=== PATIENT | male | born 1955 | race Caucasian/White ===

== ENCOUNTER 2020-07-22 08:46 | Day surgery (SDC) | payer MEDICARE, MEDICAID ==
[~2020-07-22] VITALS: Ht 180.3 cm; Wt 65.0 kg
[2020-07-22] MEDS ORDERED: XANAX0.5 MG PO (09:32)
[2020-07-22] MEDS ORDERED: ALBUTEROL SULF8.5 GM INH (09:32)
[2020-07-22] MEDS ORDERED: FLOMAX0.4 MG PO (09:32)
[2020-07-22] MEDS ORDERED: LYRICA75 MG PO (09:33)
[2020-07-22] MEDS ORDERED: TRAZODONE HCL150 MG PO (09:33)
[2020-07-22] MEDS ORDERED: SEROQUEL100 MG PO (09:33)
[2020-07-22] MEDS ORDERED: TOPROL XL50 MG PO (09:34)
[2020-07-22] MEDS ORDERED: ABILIFY10 MG PO (09:34)
[2020-07-22] MEDS ORDERED: CYMBALTA60 MG PO (09:34)
[2020-07-22] MEDS ORDERED: LIPITOR80 MG PO (09:34)
[2020-07-22 09:35] LABS: ANION GAP 9.5 mmol/L (8-16); CALCIUM 8.5 mg/dL (8.5-10.1); CARBON DIOXIDE 29.6 mmol/L (21.0-32.0); CREATININE - SERUM 1.3 mg/dL (0.6-1.3); POTASSIUM - SERUM 4.1 mmol/L (3.5-5.1)
[2020-07-22] MEDS ORDERED: TRELEGY ELLIPT1 EACH INH (09:35)
[2020-07-22] MEDS ORDERED: HYDROCODON-ACE1 EA10 PO (09:35)
[2020-07-22] MEDS ORDERED: FLUTICASONE PRO16 GM NASAL (09:35)
[2020-07-22 09:39] VITALS: BP 162/76; Ht 180.3 cm; Wt 65.0 kg
[2020-07-22 09:42] LABS: BASOPHILS 0.1 % (0-2); EOSINOPHILS 0.2 % (0-7); IMMATURE GRANULOCYTES 0.3 % (0-5); LYMPHOCYTES 6.5 % (15-50); MCH 34.3 pg (26.0-34.0); MCHC 34.2 g/dL (31.0-37.0); MCV 100.3 fL (80.0-100.0); MEAN PLATELET VOLUME 9.3 fL (7.4-10.4); MONOCYTES 7.1 % (2-11); NEUTROPHIL ABS# 9.31 10x3/uL (1.78-5.38); NEUTROPHILS 85.8 % (40-80); PLATELET COUNT 251 10x3/uL (130-400); RBC 3.79 10x6/uL (4.20-6.10); RDW 15.8 % (11.5-14.5); WBC 10.8 10x3/uL (4.8-10.8)
--- NOTE | 2020-07-22 11:25 | NUR ---
PATIENT AMBULATES TO BATHROOM AND VOIDS IN TOILET WITHOUT DIFFICULTY. RIGHT FOREARM PIV DC'D WITH TIP INTACT. DISCHARGE INSTRUCTIONS REVIEWED WITH PATIENT 1135 DISCHARGED HOME VIA WHEELCHAIR TO PRIVATE VEHICLE WITH DAUGHTER
--- NOTE | 2020-07-22 19:42 | OP ---
PATIENT NAME: CHRISTIANO LINTON MEDICAL RECORD: [id number] :57 LOCATION:[facility] ADMISSION DATE: SURGEON: RICHARDSON TAYLOR DO DATE OF OPERATION: 07/22/2020 PROCEDURE: EGD with biopsies. 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 SCOPE: Olympus video gastroscope. MEDICATIONS: Propofol 250 mg IV per anesthesia. ESTIMATED BLOOD LOSS: Minimal. COMPLICATIONS: None. FINDINGS: Informed consent was given. The patient was made comfortable with the above medication. After reaching an adequate level of sedation by slow IV push, the patient was placed on his left side. The endoscope was advanced under direct visualization through the mouth to the second portion of the duodenum with ease. The upper and middle esophagus appeared normal. In the distal esophagus and down to the GE junction, there was evidence of erosive reflux-induced esophagitis. The patient does have a history of Barber's esophagus without dysplasia and there were no obvious abnormalities outside of the inflammation visualized from the reflux itself. Multiple cold forceps biopsies were taken from the squamocolumnar junction to submit for histopathology regarding the history of Barber's. The endoscope was advanced beyond the GE junction into the stomach and retroflexed to view the cardia and fundus. There was a moderate sliding hiatal hernia. There were no associated ulcerations or other abnormalities. The stomach revealed diffuse, but patchy gastritis consisting of congestion, erythema, and friability. Cold forceps biopsies were taken from the antrum and incisura to submit for histopathology and to rule out the presence of H. pylori. The endoscope was advanced beyond the pylorus into the duodenum. In the bulb, there were changes of duodenitis consisting of erythema and granularity and friability. This normalized into the second portion of the duodenum. Cold forceps biopsies were taken to submit for histopathology. The endoscope was then withdrawn from the patient. The patient tolerated the procedure well and there were no complications. IMPRESSIONS: 1. Erosive reflux-induced esophagitis in the setting of history of Barber's esophagus without dysplasia. Multiple biopsies were taken from the squamocolumnar junction. If this is Barber's mucosa it is short segment. 2. Moderate size sliding hiatal hernia without associated abnormalities. 3. Gastritis. 4. Duodenitis. PLAN AND RECOMMENDATIONS: 1. Discharge home when recovery parameters are met. 2. Follow up biopsy specimen results. 3. GERD diet and reflux precautions. 4. Continue current medications. 5. Nexium 40 mg daily indefinitely. 6. Follow up in GI clinic in 3 months. OPERATIVE REPORT [id number] CHRISTIANO LINTON 7. Repeat EGD every 1 to 2 years for surveillance of Barber's esophagus. TRANSINT:[id number] Voice Confirmation ID: [id number] DOCUMENT ID: [id number] RICHARDSON TAYLOR DO at 1942 CC: [id number] DICTATION DATE: 07/22/20 1051 [employer] ATT[employer]ER: 07/22/20 1247 [facility] 07/22/20 [facility] [address] [place] [address]
== END 2020-07-22 11:35 | disposition home or self-care (01) ==
LOC: D.OPS 08:46
PROVIDERS: Anesthesiology; ATTEND Internal Medicine Gastroenterology
DX: K22.70 Barrett's esophagus without dysplasia (principal); K21.00 Gastro-esophageal reflux disease with esophagitis, without bleeding; K44.9 Diaphragmatic hernia without obstruction or gangrene; K29.70 Gastritis, unspecified, without bleeding; K29.80 Duodenitis without bleeding; J44.9 Chronic obstructive pulmonary disease, unspecified; F17.210 Nicotine dependence, cigarettes, uncomplicated; Z80.0 Family history of malignant neoplasm of digestive organs; Z86.010 Personal history of colon polyps

== ENCOUNTER 2020-08-05 08:53 | Day surgery (SDC) | payer MEDICARE, MEDICAID ==
[~2020-08-05] VITALS: Ht 180.3 cm; Wt 65.0 kg
[~2020-08-05 08:53] MED LIST: ABILIFY10 MG PO; ALBUTEROL SULF8.5 GM INH; CYMBALTA60 MG PO; FLOMAX0.4 MG PO; FLUTICASONE PRO16 GM NASAL; HYDROCODON-ACE1 EA10 PO; LIPITOR80 MG PO; LYRICA75 MG PO; SEROQUEL100 MG PO; TOPROL XL50 MG PO; TRAZODONE HCL150 MG PO; TRELEGY ELLIPT1 EACH INH; XANAX0.5 MG PO
[2020-08-05 09:14] LABS: HEMATOCRIT 40.9 % (42.0-54.0); HEMOGLOBIN 13.9 g/dL (13.5-17.5); MCH 34.5 pg (26.0-34.0); MCV 101.5 fL (80.0-100.0); MEAN PLATELET VOLUME 9.4 fL (7.4-10.4); RBC 4.03 10x6/uL (4.20-6.10); RDW 15.3 % (11.5-14.5); WBC 4.5 10x3/uL (4.8-10.8)
[2020-08-05 09:32] VITALS: Ht 180.3 cm; Wt 65.0 kg
--- NOTE | 2020-08-05 11:01 | NUR ---
1052 DR BRANDON HANSEN.
--- NOTE | 2020-08-05 17:16 | OP ---
PATIENT NAME: CHRISTIANO LINTON MEDICAL RECORD: [id number] :57 LOCATION:[facility] ADMISSION DATE: SURGEON: RICHARDSON TAYLOR DO DATE OF OPERATION: 08/05/2020 PROCEDURE: Colonoscopy with polypectomy. INDICATIONS FOR PROCEDURE: Family history positive for cancer involving the digestive tract in the patient's grandmother and a history of colon polyps. SCOPE: Olympus video pediatric colonoscope. MEDICATIONS: Propofol 275 mg IV per anesthesia. WITHDRAWAL TIME: 25 minutes. ESTIMATED BLOOD LOSS: Minimal. COMPLICATIONS: None. FINDINGS: Informed consent was given. The patient was made comfortable with the above medication. After reaching an adequate level of sedation by slow IV push, the patient was placed on his left side. A digital rectal examination revealed some prostate hyperplasia, but was otherwise normal. The endoscope was advanced under direct visualization through the rectum to the cecum, confirmed by the presence of the appendiceal orifice and ileocecal valve. The endoscope was slowly withdrawn and mucosa was carefully examined. The prep quality was poor. There were 2 benign-appearing sessile polyps located in the transverse colon, which measured approximately 2-3 mm in diameter. They were both removed using hot forceps. There were no diverticula visualized on today's examination. Retroflexion was performed in the rectum with visualization of a normal appearing rectal wall. The endoscope was withdrawn from the patient. The patient tolerated the procedure well and there were no complications. IMPRESSION: 1. Benign appearing polyps as described above, removed with hot forceps. 2. Otherwise, normal colonoscopy. PLAN AND RECOMMENDATIONS: 1. Discharge home when recovery parameters are met. 2. Follow up biopsy specimen results. 3. High fiber diet. 4. Continue current medications. 5. Recall colonoscopy in 3-5 years based on the patient's prep and polyps removed on today's examination. TRANSINT:[id number] Voice Confirmation ID: [id number] DOCUMENT ID: [id number] OPERATIVE REPORT [id number] CHRISTIANO LINTON RICHARDSON TAYLOR DO at 1716 CC: [id number] DICTATION DATE: 08/05/20 1038 [employer] OFFICER: 08/05/20 1323 [facility] 08/05/20 [place] [address]
== END 2020-08-05 11:34 | disposition home or self-care (01) ==
LOC: D.OPS 08:53
PROVIDERS: Anesthesiology; ATTEND Internal Medicine Gastroenterology
DX: K63.5 Polyp of colon (principal); Z83.71 Family history of colonic polyps; Z80.0 Family history of malignant neoplasm of digestive organs; I51.9 Heart disease, unspecified; I10 Essential (primary) hypertension

== ENCOUNTER → 2020-08-23 13:07 | Outpatient (CLI) | payer MEDICARE, MEDICAID ==
[2020-08-05 09:32] VITALS: BMI 19.9
== END | disposition home or self-care (01) ==
LOC: D.LAB 13:07
PROVIDERS: ATTEND Internal Medicine Pulmonary Disease
DX: Z11.52 Encounter for screening for COVID-19 (principal)

== ENCOUNTER → 2020-08-27 14:37 | Outpatient (CLI) | payer MEDICARE, MEDICAID ==
[2020-08-05 09:32] VITALS: BMI 19.9
== END | disposition home or self-care (01) ==
LOC: D.OPS 07-22 12:30 → D.RAD 14:37 → D.RT 15:00 → D.RAD 08-28 14:45 → D.RT 08-28 15:00
PROVIDERS: ATTEND Internal Medicine Pulmonary Disease
DX: J44.9 Chronic obstructive pulmonary disease, unspecified (principal); R06.09 Other forms of dyspnea

== ENCOUNTER 2020-09-27 13:15 | Emergency (ER) | payer MEDICARE, MEDICAID ==
[~2020-09-27] VITALS: Ht 180.3 cm; Wt 65.0 kg
[2020-09-27 13:35] VITALS: BP 142/82; Ht 180.3 cm; Wt 65.0 kg
[2020-09-27 14:09] LABS: BASOPHILS 0.6 % (0-2); EOSINOPHILS 3.4 % (0-7); HEMATOCRIT 44.8 % (42.0-54.0); HEMOGLOBIN 15.3 g/dL (13.5-17.5); IMMATURE GRANULOCYTES 0.2 % (0-5); LYMPHOCYTE ABS# 2.21 10x3/uL (1.32-3.57); LYMPHOCYTES 22.2 % (15-50); MCH 29.5 pg (26.0-34.0); MCHC 34.2 g/dL (31.0-37.0); MCV 86.3 fL (80.0-100.0); MEAN PLATELET VOLUME 10.3 fL (7.4-10.4); MONOCYTES 7.8 % (2-11); NEUTROPHIL ABS# 6.55 10x3/uL (1.78-5.38); NEUTROPHILS 65.8 % (40-80); PLATELET COUNT 230 10x3/uL (130-400); RBC 5.19 10x6/uL (4.20-6.10); RDW 12.8 % (11.5-14.5)
[2020-09-27 14:12] LABS: CALC OSMOLALITY 277 mosm/kg (275-300); CALCIUM 9.7 mg/dL (8.5-10.1); CARBON DIOXIDE 29.2 mmol/L (21.0-32.0); CHLORIDE - SERUM 101 mmol/L (98-107); CREATININE - SERUM 0.9 mg/dL (0.6-1.3); GLUCOSE 114 mg/dL (74-106); POTASSIUM - SERUM 3.6 mmol/L (3.5-5.1); SODIUM 139 mmol/L (136-145); UREA NITROGEN 10 mg/dL (7-18); eGFR NON AFRICAN AMERICAN > 90 mL/min (90-120)
[2020-09-27 14:19] LABS: ALBUMIN 4.4 g/dL (3.4-5.0); ALKALINE PHOSPHATASE 230 U/L (30-120); ALT (SGPT) 20 U/L (10-68); BILIRUBIN - TOTAL 0.35 mg/dL (0.2-1.3); PROTEIN - SERUM 8.2 g/dL (6.4-8.2)
== END 2020-09-27 15:16 | disposition home or self-care (01) ==
LOC: D.ER 13:15
PROVIDERS: Emergency Medicine
DX: J44.9 Chronic obstructive pulmonary disease, unspecified (principal); I10 Essential (primary) hypertension; Z72.0 Tobacco use; R05 Cough; R06.02 Shortness of breath

== ENCOUNTER 2020-10-02 14:53 | Emergency (ER) | payer MEDICARE, MEDICAID ==
[~2020-10-02] VITALS: Ht 180.3 cm; Wt 59.1 kg
[2020-10-02 14:59] VITALS: BP 162/98; Ht 180.3 cm; Wt 59.1 kg
[2020-10-02] MEDS ORDERED: MEDROL DOSE PACK4 MG PO (15:24)
== END 2020-10-02 15:30 | disposition home or self-care (01) ==
LOC: D.ER 14:53
DX: J44.1 Chronic obstructive pulmonary disease with (acute) exacerbation (principal); R45.4 Irritability and anger; I10 Essential (primary) hypertension; I25.2 Old myocardial infarction; Z72.0 Tobacco use